=== PATIENT | male | born 1975 | race Caucasian/White ===

== ENCOUNTER 2022-10-29 07:46 | Emergency (ER) | payer OTHER, BC ==
[2022-10-29] MEDS ORDERED: Ketorolac Tromethamine 30 MG/ML VIAL ONE (08:40)
[2022-10-29] MEDS ORDERED: Iopamidol-370 76% 500 ML MDV (1 ML CHARGE) ONE (09:16)
[2022-10-29] MEDS ORDERED: Fluorescein Opthalmic Strip ONE (09:24)
[2022-10-29] MEDS ORDERED: Proparacaine 0.5% Opth 15 ML BOT ONE (09:24)
[2022-10-29] MEDS ORDERED: Boostrix 0.5 ML (Tdap) VIAL (>/=7 yrs of age) ONE (10:08)
== END 2022-10-29 10:16 | disposition home or self-care (01) ==
LOC: ERS 07:46
DX: S20.214A Contusion of middle front wall of thorax, initial encounter (principal); S30.1XXA Contusion of abdominal wall, initial encounter; S40.812A Abrasion of left upper arm, initial encounter; S40.811A Abrasion of right upper arm, initial encounter; I10 Essential (primary) hypertension; E11.9 Type 2 diabetes mellitus without complications; V89.2XXA Person injured in unspecified motor-vehicle accident, traffic, initial encounter; Z79.82 Long term (current) use of aspirin; Z23 Encounter for immunization
CPT/HCPCS: 70450; 71260; 72125; 74177; 90471; 90715; 96374; J1885; Q9967